=== PATIENT | female | born 1955 | race Caucasian/White ===

== ENCOUNTER 2019-04-03 16:50 | Emergency (ER) | payer SELFPAY ==
[~2019-04-03] VITALS: Ht 157.5 cm; Wt 74.8 kg
[2019-04-03 16:50] VITALS: BP 117/56
--- NOTE | 2019-04-03 16:50 | NUR ---
PT AMBULATED TO BED
--- NOTE | 2019-04-03 17:07 | NUR ---
63 Y/O F C/O ABSCESS ON RT UPPER BACK THAT IS RED IN COLOR, RAISED. PT STATES THE AREA STARTED A PIMPLE X1 WEEK AGO, AND GRADUALLY BECAME PAINFUL 2/10 AND LARGER. PT DENIES FEVER, N/V. PT POSITIONED FOR COMFORT, PUT IN GOWN. NKA
[2019-04-03] MEDS ORDERED: LIDOCAINE MPF 1% 10 MG/ML VIAL INJ ONE (17:10)
[2019-04-03] MEDS ORDERED: BACITRACIN OINT 500 UNITS/GM PKT TP ONE (17:10)
--- NOTE | 2019-04-03 18:00 | NUR ---
RITA MELENDREZ AT BEDSIDE PERFORMING I/D ON PT.
--- NOTE | 2019-04-03 18:19 | NUR ---
EMT AT BEDSIDE APPLYING BANDAGE ON PATIENTS WOUND.
[2019-04-03 18:34] VITALS: BP 117/56
--- NOTE | 2019-04-03 18:35 | NUR ---
Patient discharged with v/s stable. Written and verbal after care instructions given and explained. Patient alert, oriented and verbalized understanding of instructions. Ambulatory with steady gait. All questions addressed prior to discharge. ID band removed. Patient advised to follow up with PMD. Rx of BACTRIM DS given. Patient educated on indication of medication including possible reaction and side effects. Opportunity to ask questions provided and answered.
--- NOTE | 2019-04-03 18:36 | NUR ---
APPLIED DRESSING TO RIGHT UPPER BACK WITHOUT ANY ISSUES
== END 2019-04-03 18:35 | disposition home or self-care (01) ==
LOC: MED 16:50
DX: L02.212 Cutaneous abscess of back [any part, except buttock and flank] (principal)
CPT/HCPCS: 10060; 99283; J2001

== ENCOUNTER 2019-04-06 09:21 | Emergency (ER) | payer SELFPAY ==
[~2019-04-06] VITALS: Ht 154.9 cm; Wt 63.5 kg
[2019-04-06 09:33] VITALS: BP 107/64
--- NOTE | 2019-04-06 09:35 | NUR ---
Patient ambulated to bed 12. RN evaluating the patient at bedside.
--- NOTE | 2019-04-06 09:44 | NUR ---
63 Y/O F C/C REMOVAL OF GAUZE FROM [facility]ANE[facility]'S ABSCESS REMOVAL ON RIGHT UPPER BACK. PT NKA. NO HX. NO RX. NO N/V/D. NO PAIN. SIDE RAIL X1.
[2019-04-06 10:53] VITALS: BP 107/64
--- NOTE | 2019-04-06 10:53 | NUR ---
Patient discharged by Dr. Hammonds with v/s stable. Written and verbal after care instructions given and explained. Patient verbalized understanding. Ambulatory with steady gait. All questions addressed prior to discharge. Advised to follow up with PMD.
== END 2019-04-06 10:53 | disposition home or self-care (01) ==
LOC: MED 09:21
DX: Z48.00 Encounter for change or removal of nonsurgical wound dressing (principal)
CPT/HCPCS: 99281

== ENCOUNTER 2022-11-08 11:14 | Emergency (ER) | payer OTHER ==
[~2022-11-08] VITALS: Ht 152.4 cm; Wt 77.1 kg
[2022-11-08 11:30] VITALS: BP 126/76; PULSE 69; RESP 18; TEMP 97.9; O2SAT 99
[2022-11-08] MEDS ORDERED: LIDOCAINE MPF 1% 10 MG/ML VIAL INJ ONE (13:30)
[2022-11-08 14:22] VITALS: BP 120/72; PULSE 68; RESP 18; TEMP 97.9; O2SAT 99
[2022-11-08] MEDS ORDERED: CEPH-588 PO (14:22)
[2022-11-08] MEDS ORDERED: IBUP-1842 PO (14:22)
== END 2022-11-08 14:39 | disposition home or self-care (01) ==
LOC: MED 11:14
DX: L02.212 Cutaneous abscess of back [any part, except buttock and flank] (principal); Z79.899 Other long term (current) drug therapy
CPT/HCPCS: 10060; 99283; J2001

== ENCOUNTER 2022-11-10 10:58 | Emergency (ER) | payer OTHER ==
[~2022-11-10] VITALS: Ht 148.6 cm; Wt 79.4 kg
[~2022-11-10 10:58] MED LIST: CEPH-588 PO; IBUP-1842 PO
[2022-11-10 11:25] VITALS: BP 122/82; PULSE 66; RESP 18; TEMP 97.7; O2SAT 98
[2022-11-10 13:08] VITALS: BP 125/80; PULSE 59; RESP 19; TEMP 98.1; O2SAT 99
== END 2022-11-10 13:08 | disposition home or self-care (01) ==
LOC: MED 10:58
DX: L02.413 Cutaneous abscess of right upper limb (principal); Z48.00 Encounter for change or removal of nonsurgical wound dressing
CPT/HCPCS: 99282